=== PATIENT | female | born 1985 | race Hispanic/Latino ===

== ENCOUNTER 2017-01-29 10:11 | Emergency (ER) | payer OTHER ==
[2017-01-29 10:18] VITALS: BMI 20.5
[2017-01-29] MEDS ORDERED: Sodium Chloride 0.9% 1,000 ML IV STA (11:03)
--- NOTE | 2017-01-29 11:14 | ED PDOC ---
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 Pt admits she is on seizure medication and sees MD Nahid neurology and MD Daren Hematology. admits in the past she has has had significant seizures. states she has been moving around lately and is now settled in [place] for medical care. MD Daren contacted-states he hasn't seen pt for about 6 months. MD Nahid contacted states pt was last seen 1.5 months ago, has a hx of frequent moves and can be noncompliant with dx testing/treatment, however pt is stable from neurology f.u pt also states she has a mass near her pelvis and is having f.u with an obgyn ( Ashely Nunes) Past Medical History Reviewed: Historical Data, Nursing Documentation, Vital Signs - Family History Family History: States: Unknown Family Hx <Ashely Nunes - Last Filed: 01/29/17 11:16> <Jessie Guevara - Last Filed: 01/29/17 13:49> Vital Signs: Last Vital Signs Temp 97.6 F 01/29/17 10:16 Pulse 97 H 01/29/17 10:16 Resp 16 01/29/17 10:16 BP 131/81 01/29/17 10:16 Pulse Ox 98 01/29/17 11:16 - Home Medications Home Medications: Ambulatory Orders Medication Instructions Recorded Alprazolam [Xanax] 4 mg PO HS 06/14/16 Lisdexamfetamine Dimesylate 70 mg PO DAILY 06/14/16 [Vyvanse] Pregabalin [Lyrica] 50 mg PO DAILY 06/14/16 levETIRAcetam [Keppra] 1 g PO QID 06/14/16 Naproxen 500 mg PO BID PRN #10 unit 01/29/17 - Allergies Allergies/Adverse Reactions: Allergies Allergy/AdvReac Type Severity Reaction Status Date / Time Barbiturates Allergy RASH Verified 01/29/17 10:21 phenytoin sodium Allergy RASH Verified 01/29/17 10:21 [From Dilantin] phenytoin sodium extended Allergy RASH Verified 01/29/17 10:21 [From Dilantin] Review of Systems ROS Statement: Except As Marked, All Systems Reviewed And Found Negative Constitutional: Negative for: Fever, Chills ENT: Negative for: Ear Pain, Ear Discharge Cardiovascular: Negative for: Chest Pain, Palpitations Respiratory: Negative for: Cough, Shortness of Breath Gastrointestinal: Positive for: Abdominal Pain. Negative for: Nausea, Vomiting Musculoskeletal: Negative for: Back Pain, Hand Pain, Leg Pain <Ashely Nunes - Last Filed: 01/29/17 11:16> Physical Exam - Reviewed Nursing Documentation Reviewed: Yes Vital Signs Reviewed: Yes - Physical Exam Appears: Positive for: Well, Non-toxic, No Acute Distress Skin: Positive for: Normal Color, Warm, DRY Cardiovascular/Chest: Positive for: Regular Rate, Rhythm Respiratory: Positive for: CNT, Normal Breath Sounds Gastrointestinal/Abdominal: Positive for: Normal Exam, Bowel Sounds, Soft, Tenderness Extremity: Positive for: Normal ROM Neurologic/Psych: Positive for: Alert, Oriented <Ashely Nunes - Last Filed: 01/29/17 11:16> - ECG O2 Sat by Pulse Oximetry: 98 <Ashely Nunes - Last Filed: 01/29/17 11:16> - Laboratory Results Result Diagrams: 01/29/17 11:10 01/29/17 11:10 <Jessie Guevara - Last Filed: 01/29/17 13:49> - Progress ED Course And Treament: pt will get CT scan of belly. PT will get Cbc/cmp and IV fluids. (Ashely Nunes) Medical Decision Making <Ashely Nunes - Last Filed: 01/29/17 11:16> <Jessie Guevara - Last Filed: 01/29/17 13:49> Medical Decision Making: Patient seen by PA and then evaluated by me FINDINGS: LOWER THORAX: Unremarkable. LIVER: Normal size, contour and attenuation. Mild periportal edema, nonspecific. No focal mass. GALLBLADDER AND BILE DUCTS: No calcified gallstones. Mild mural thickening, nonspecific. Consider correlation with ultrasound examination if clinically appropriate. PANCREAS: Unremarkable. No gross lesion or ductal dilatation. SPLEEN: Unremarkable. ADRENALS: Unremarkable. No mass. KIDNEYS AND URETERS: Unremarkable. No hydronephrosis. No solid mass. VASCULATURE: Unremarkable. No aortic aneurysm. BOWEL: Unremarkable. No obstruction. No gross mural thickening. APPENDIX: Not identified. No secondary findings to suggest acute appendicitis. PERITONEUM: Unremarkable. No free fluid. No free air. LYMPH NODES: Unremarkable. No enlarged lymph nodes. BLADDER: Poorly distended. No gross abnormality. REPRODUCTIVE: Normal uterus BONES: No acute fracture. OTHER FINDINGS: None. IMPRESSION: Mild periportal edema, nonspecific. Mild thickening of the gallbladder wall without calcified gallstones. Nonspecific finding. Consider correlation with ultrasound examination if clinically warranted. No other significant abnormality is identified. 1:21PM Patient was seen by PA and then evaluated be me. Labs grossly normal. Denies dysuria. Abdomen is soft NT/ND. Patient feels better and is tolerating po. She was made aware of CT results. She is also complaining of occasional hair loss and was instructed to get evaluation for vitamin deficiency by PMD. She reports that she will follow-up (Jessie Guevara) Disposition <Ashely Nunes - Last Filed: 01/29/17 11:16> - Disposition Disposition: Routine/Home Disposition Time: 13:22 <Jessie Guevara - Last Filed: 01/29/17 13:49> - Clinical Impression Clinical Impression: Abdominal pain - Disposition Condition: FAIR Additional Instructions: Follow up with PMD within 2 days. Return to ED if condition worsens. Prescriptions: Naproxen 500 mg PO BID PRN #10 unit PRN Reason: Pain, Mild (1-3) Forms: [employer] ([place])
[2017-01-29 11:30] LABS: BASO # 0.1 K/uL (0.0-0.2); EOS # 0.3 K/uL (0.0-0.7); EOS % 4.1 % (0.0-4.0); HEMATOCRIT 36.5 % (34.0-47.0); LYMPH # 2.2 K/uL (1.0-4.3); MEAN CELL VOLUME 88.6 fl (81.0-99.0); MEAN CORPUSCULAR HEMOGLOBIN 29.6 pg (27.0-31.0); MEAN CORPUSCULAR HGB CONC 33.4 g/dL (33.0-37.0); MEAN PLATELET VOLUME 7.6 fl (7.2-11.7); MONO # 0.6 K/uL (0.0-0.8); MONO % 7.6 % (0.0-10.0); NEUT # 4.2 K/uL (1.8-7.0); NEUT % 57.3 % (50.0-75.0); RED CELL DISTRIBUTION WIDTH 13.7 % (11.5-14.5); WHITE BLOOD COUNT 7.4 K/uL (4.8-10.8)
[2017-01-29 11:52] LABS: ALB/GLOB RATIO 1.8 (1.0-2.1); ALKALINE PHOSPHATASE 41 U/L (38-126); ALT/SGPT 26 U/L (9-52); AST/SGOT 28 U/L (14-36); BILIRUBIN,TOTAL 0.5 mg/dl (0.2-1.3); BLOOD UREA NITROGEN 10 mg/dl (7-17); CALCIUM 9.2 mg/dL (8.4-10.2); CARBON DIOXIDE 25 mmol/L (22-30); CHLORIDE 103 mmol/L (98-107); GFR AFRICAN-AMERICAN > 60; GLUCOSE,RANDOM 80 mg/dL (65-105); POTASSIUM 3.7 MMOL/L (3.6-5.0); SODIUM 140 mmol/l (132-148); TOTAL PROTEIN 6.9 G/DL (6.3-8.2)
[2017-01-29] MEDS ORDERED: Iohexol 300 100 ML IJ ONE (12:01)
[2017-01-29] MEDS ORDERED: Sodium Chloride 0.9% 50 ML IV ONE (12:02)
--- NOTE | 2017-01-29 13:03 | CT ---
PROCEDURE: CT Abdomen and Pelvis with contrast HISTORY: abdoinal pain COMPARISON: None. TECHNIQUE: Contrast dose: 95 cc Omnipaque 300 Radiation dose: Total exam DLP = 773.54 mGy-cm. This CT exam was performed using one or more of the following dose reduction techniques: Automated exposure control, adjustment of the mA and/or kV according to patient size, and/or use of iterative reconstruction technique. FINDINGS: LOWER THORAX: Unremarkable. LIVER: Normal size, contour and attenuation. Mild periportal edema, nonspecific. No focal mass. GALLBLADDER AND BILE DUCTS: No calcified gallstones. Mild mural thickening, nonspecific. Consider correlation with ultrasound examination if clinically appropriate. PANCREAS: Unremarkable. No gross lesion or ductal dilatation. SPLEEN: Unremarkable. ADRENALS: Unremarkable. No mass. KIDNEYS AND URETERS: Unremarkable. No hydronephrosis. No solid mass. VASCULATURE: Unremarkable. No aortic aneurysm. BOWEL: Unremarkable. No obstruction. No gross mural thickening. APPENDIX: Not identified. No secondary findings to suggest acute appendicitis. PERITONEUM: Unremarkable. No free fluid. No free air. LYMPH NODES: Unremarkable. No enlarged lymph nodes. BLADDER: Poorly distended. No gross abnormality. REPRODUCTIVE: Normal uterus BONES: No acute fracture. OTHER FINDINGS: None. IMPRESSION: Mild periportal edema, nonspecific. Mild thickening of the gallbladder wall without calcified gallstones. Nonspecific finding. Consider correlation with ultrasound examination if clinically warranted. No other significant abnormality is identified.
[2017-01-29 13:49] VITALS: BP 130/86; PULSE 85; RESP 18; TEMP 98; O2SAT 99
== END 2017-01-29 13:50 | disposition home or self-care (01) ==
LOC: H.ER 10:11
DX: R10.9 Unspecified abdominal pain (principal)
CPT/HCPCS: 74177; 80053; 81025; 85025; 99284; J7040; Q9967

== ENCOUNTER 2017-01-31 22:54 | Emergency (ER) | payer OTHER ==
[2017-01-31 22:55] VITALS: BMI 20.5
[2017-01-31 23:05] VITALS: BP 125/68; PULSE 112; RESP 18; TEMP 97; O2SAT 100
--- NOTE | 2017-02-01 00:10 | ED PDOC ---
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 Patient denies any chest pain or shortness of breath. Patient denies any fever or chills, no weakness. Patient denies any acute changes in her chronic pain. Past Medical History Reviewed: Historical Data, Nursing Documentation, Vital Signs Vital Signs: Last Vital Signs Temp 97 F L 01/31/17 23:01 Pulse 112 H 01/31/17 23:01 Resp 18 01/31/17 23:01 BP 125/68 01/31/17 23:01 Pulse Ox 100 02/01/17 02:56 - Medical History PMH: Mitral Valve Prolapse Other PMH: porphyria - Surgical History Surgical History: No Surg Hx - Family History Family History: States: No Known Family Hx - Living Arrangements Living Arrangements: With Family - Social History Current smoker - smoking cessation education provided: No Alcohol: None Drugs: Denies - Home Medications Home Medications: Ambulatory Orders Medication Instructions Recorded Alprazolam [Xanax] 4 mg PO HS 06/14/16 Lisdexamfetamine Dimesylate 70 mg PO DAILY 06/14/16 [Vyvanse] Pregabalin [Lyrica] 50 mg PO DAILY 06/14/16 levETIRAcetam [Keppra] 1 g PO QID 06/14/16 Naproxen 500 mg PO BID PRN #10 unit 01/29/17 Furosemide [Lasix] 20 mg PO DAILY #30 tab 02/01/17 - Allergies Allergies/Adverse Reactions: Allergies Allergy/AdvReac Type Severity Reaction Status Date / Time Barbiturates Allergy RASH Verified 01/29/17 10:21 phenytoin sodium Allergy RASH Verified 01/29/17 10:21 [From Dilantin] phenytoin sodium extended Allergy RASH Verified 01/29/17 10:21 [From Dilantin] Review of Systems ROS Statement: Except As Marked, All Systems Reviewed And Found Negative Constitutional: Negative for: Fever, Chills, Weakness, Malaise Cardiovascular: Positive for: Edema. Negative for: Chest Pain, Palpitations, Light Headedness Respiratory: Negative for: Cough, Shortness of Breath Gastrointestinal: Negative for: Nausea, Vomiting Genitourinary Female: Negative for: Dysuria Neurological: Negative for: Headache, Dizziness Physical Exam - Reviewed Nursing Documentation Reviewed: Yes Vital Signs Reviewed: Yes - Physical Exam Appears: Positive for: Well, Non-toxic, No Acute Distress Skin: Negative for: Rash Eye Exam: Positive for: Normal appearance, EOMI, PERRL Cardiovascular/Chest: Positive for: Regular Rate, Rhythm Respiratory: Positive for: Normal Breath Sounds. Negative for: Decreased Breath Sounds, Wheezing, Respiratory Distress Extremity: Positive for: Other (Mild generalized edema noted to bilateral lower extremities) Neurologic/Psych: Positive for: Alert, Oriented - Laboratory Results Result Diagrams: 02/01/17 01:06 02/01/17 01:06 - ECG O2 Sat by Pulse Oximetry: 100 Pulse Ox Interpretation: Normal - Other Rad CXR X-Ray: Interpreted by Me, Viewed By Me X-Ray Interpretation: no acute finding Doppler Bilateral Legs X-Ray: Read By Radiologist X-Ray Interpretation: no DVT, no acute finding Medical Decision Making Medical Decision Makin-year-old bilateral leg edema, history of porphyria. Plan: test CBC CMP Trop BNP CXR EKG CPK IV Patient is aware of all diagnostic testing results. All questions answered. Case was d/w Dr. Hernandez who states to send patient home with low dose of lasix. Patient has an appt with PMD this coming Thursday. Disposition - Clinical Impression Clinical Impression: Peripheral edema - Patient ED Disposition Is Patient to be Admitted: No Counseled Patient/Family Regarding: Studies Performed, Diagnosis, Need For Followup, Rx Given - Disposition Referrals: Skylar Mercedes MD [Medical Doctor] - Disposition: Routine/Home Disposition Time: 03:55 Condition: STABLE Additional Instructions: Take prescription meds as directed. Eat potassium-rich foods while on this medication. Follow up as scheduled on Thursday with her primary doctor. Prescriptions: Furosemide [Lasix] 20 mg PO DAILY #30 tab Instructions: Leg Edema (ED) Results - Lab Results Lab Results: 02/01/17 02/01/17 01:06 01:06 WBC 7.7 RBC 3.80 Hgb 11.3 L Hct 33.8 L MCV 88.8 MCH 29.6 MCHC 33.4 RDW 13.7 Plt Count 235 MPV 7.4 Neut % (Auto) 54.2 Lymph % (Auto) 32.5 [place] % (Auto) 6.5 Eos % (Auto) 5.5 H Baso % (Auto) 1.3 Neut # 4.2 Lymph # 2.5 [place] # 0.5 Eos # 0.4 Baso # 0.1 Sodium 138 Potassium 4.1 Chloride 104 Carbon Dioxide 26 Anion Gap 12 BUN 14 Creatinine 0.6 L Est GFR ( Amer) > 60 Est GFR (Non-Af Amer) > 60 Random Glucose 90 Calcium 9.3 Total Bilirubin 0.4 AST 22 ALT 38 Alkaline Phosphatase 35 L Total Creatine Kinase 83 NT-Pro-B Natriuret Pep 42.9 Total Protein 6.5 Albumin 4.1 Globulin 2.4 Albumin/Globulin Ratio 1.7
[2017-02-01 01:09] LABS: BASO # 0.1 K/uL (0.0-0.2); BASO % 1.3 % (0.0-2.0); EOS # 0.4 K/uL (0.0-0.7); EOS % 5.5 % (0.0-4.0); HEMATOCRIT 33.8 % (34.0-47.0); LYMPH # 2.5 K/uL (1.0-4.3); LYMPH % 32.5 % (20.0-40.0); MEAN CELL VOLUME 88.8 fl (81.0-99.0); MEAN CORPUSCULAR HEMOGLOBIN 29.6 pg (27.0-31.0); MEAN CORPUSCULAR HGB CONC 33.4 g/dL (33.0-37.0); MEAN PLATELET VOLUME 7.4 fl (7.2-11.7); MONO # 0.5 K/uL (0.0-0.8); MONO % 6.5 % (0.0-10.0); NEUT # 4.2 K/uL (1.8-7.0); NEUT % 54.2 % (50.0-75.0); RED CELL DISTRIBUTION WIDTH 13.7 % (11.5-14.5); WHITE BLOOD COUNT 7.7 K/uL (4.8-10.8)
[2017-02-01 01:18] LABS: ALB/GLOB RATIO 1.7 (1.0-2.1); ALKALINE PHOSPHATASE 35 U/L (38-126); ALT/SGPT 38 U/L (9-52); AST/SGOT 22 U/L (14-36); BILIRUBIN,TOTAL 0.4 mg/dl (0.2-1.3); BLOOD UREA NITROGEN 14 mg/dl (7-17); CALCIUM 9.3 mg/dL (8.4-10.2); CARBON DIOXIDE 26 mmol/L (22-30); CHLORIDE 104 mmol/L (98-107); GFR AFRICAN-AMERICAN > 60; GLUCOSE,RANDOM 90 mg/dL (65-105); POTASSIUM 4.1 MMOL/L (3.6-5.0); SODIUM 138 mmol/l (132-148); TOTAL PROTEIN 6.5 G/DL (6.3-8.2)
--- NOTE | 2017-02-01 01:46 | US ---
EXAM: US Duplex Bilateral Lower Extremity Veins CLINICAL HISTORY: 31 years old, female; Signs and symptoms; Swelling of limb; Lower extremity, bilateral; Additional info: Swelling both legs TECHNIQUE: Real-time ultrasound scan of the veins of the bilateral lower extremities with color Doppler flow, spectral waveform analysis and compression. COMPARISON: No relevant prior studies available. FINDINGS: Right deep veins: Unremarkable. No DVT in the right common femoral, femoral, proximal deep femoral or popliteal veins. The veins demonstrate normal color flow, are normally compressible, with normal phasic flow and/or augmentation response. Right superficial veins: Unremarkable. No thrombus in the visualized right great saphenous vein. Left deep veins: Unremarkable. No DVT in the left common femoral, femoral, proximal deep femoral or popliteal veins. The veins demonstrate normal color flow, are normally compressible, with normal phasic flow and/or augmentation response. Left superficial veins: Unremarkable. No thrombus in the visualized left great saphenous vein. Soft tissues: No acute findings. No popliteal cyst. IMPRESSION: Normal bilateral lower extremity duplex venous ultrasound.
--- NOTE | 2017-02-01 08:12 | RAD ---
HISTORY: edema in legs COMPARISON: No prior. FINDINGS: LUNGS: No active pulmonary disease. PLEURA: No significant pleural effusion identified, no pneumothorax apparent. CARDIOVASCULAR: Normal. OSSEOUS STRUCTURES: No significant abnormalities. VISUALIZED UPPER ABDOMEN: Normal. OTHER FINDINGS: None. IMPRESSION: No active disease.
== END 2017-02-01 04:11 | disposition home or self-care (01) ==
LOC: H.ER 22:54
DX: R60.9 Edema, unspecified (principal); I34.1 Nonrheumatic mitral (valve) prolapse